=== PATIENT | male | born 2000 | race American Indian/Alaskan Native ===

== ENCOUNTER 2023-02-18 15:19 | Emergency (ER) | payer MEDICAID, OTHER ==
[~2023-02-18] VITALS: Ht 180.3 cm; Wt 93.1 kg
[2023-02-18 17:03] VITALS: BP 121/73; PULSE 73; RESP 14; TEMP 98.7; O2SAT 98
== END 2023-02-18 17:06 | disposition home or self-care (01) ==
LOC: ER 15:19
DX: M25.512 Pain in left shoulder (principal); W18.39XA Other fall on same level, initial encounter; Y93.66 Activity, soccer; Y92.89 Other specified places as the place of occurrence of the external cause; Y99.8 Other external cause status
CPT/HCPCS: 73030